=== PATIENT | male | born 1960 | race Caucasian/White ===

== ENCOUNTER 2018-08-06 17:44 | Observation (INO) ==
[2018-08-06] MEDS ORDERED: 0.9 % Sodium Chloride 1,000 ML IVC ONE (17:47)
[2018-08-06] MEDS ORDERED: Ondansetron 4 MG/2 ML VIAL IVP ONE (17:47)
--- NOTE | 2018-08-06 17:49 | Emergency Department Note ---
Disposition Clinical Impression: Dehydration, Nausea vomiting and diarrhea Chemotherapy adverse reaction Qualifiers: Encounter type: initial encounter Qualified Code(s): T45.1X5A - Adverse effect of antineoplastic and immunosuppressive drugs, initial encounter Disposition: Admitted As Inpatient Condition: Fair [facility]: [facility] [Primary Care Provider[facility] - Forms: ED Satisfaction Letter Nausea/Vomiting/Diarrhea HPI - General Chief complaint: ED Nausea/Vomiting/Diarrhea Stated complaint: Nausea, vomiting, frequent falls onset Monday Time Seen by Provider: 08/06/18 17:47 Source: patient, EMS Mode of arrival: EMS Limitations: no limitations Nursing Notes Reviewed: Yes Vital Signs Reviewed: Yes - History of Present Illness HPI Narrative: Patient reports that he had his normal chemotherapy on Monday for his 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 He has been through radiation and the full. After this episode of chemotherapy he started Monday morning with nausea, vomiting and diarrhea. He states he has had diarrhea about once a day without blood or mucus. States he vomits if he eats or drinks anything. With this he has generalized weakness and malaise. He states he just gets up out of bed to try to Remove he will end up on the ground. He states "it is a slow process". He denies any has any specific injury beyond "little scrapes". He is concerned that he is unable to get up and get around and thereby care for himself thereby prompting a call to 911. He denies any ill exposures, fevers or chills. Denies chest pain, cough or abnormal shortness of breath. He states his shortness of breath that is "normal for me" and he has chronic dyspnea on exertion. He denies any blood or mucus in emesis or stool. He denies any abdominal pain or cramping. His urination is decreased. Denies recent change of medications beyond his chemotherapy. An IV was established by EMS and he has been transported in for evaluation. The patient was able to stand to transfer from the EMS cot to our examining bed. Pt Subjective Complaint: nausea, vomiting, diarrhea, other (Presyncopal, weakness) Onset (ago): day(s) (3) Description of emesis: watery Description of Diarrhea: water Number of episodes: 4 Associated Abdominal Pain: No Severity: none Consistency: intermittent Improves with: nothing Worsens with: eating Context: other (Chemotherapy) Associated symptoms: Reports: loss of appetite, malaise, nausea/vomiting, shortness of breath (Chronic), syncope (Near), weakness. Denies: myalgias, chest pain, cough, diaphoresis, fever/chills, headaches, rash, dysuria - Related Data Home Medications Medication Instructions Recorded Confirmed Albuterol Sulfate [Albuterol 1 puff IH Q6HR PRN 10/10/17 08/03/18 Inhaler] Atorvastatin Calcium [Lipitor] 20 mg PO DAILY 10/10/17 08/03/18 Cetirizine HCl [Zyrtec] 10 mg PO DAILY 10/10/17 08/03/18 Cholecalciferol (D-3) [Vitamin D] 3,000 unit PO DAILY 10/10/17 08/03/18 FLUoxetine HCl [PROzac] 20 mg PO DAILY 10/10/17 08/03/18 Gabapentin [Neurontin] 100 mg PO TID 10/10/17 08/03/18 Glimepiride [Amaryl] 8 mg PO DAILY 10/10/17 08/03/18 Ibuprofen 600 mg PO TID PRN 10/10/17 08/03/18 Saxagliptin HCl [Onglyza] 5 mg PO DAILY 10/10/17 08/03/18 Sildenafil Citrate [Viagra] 100 mg PO AD PRN 10/10/17 08/03/18 metFORMIN [Glucophage] 500 mg PO BIDWM 06/01/18 08/03/18 Previous Rx's Medication Instructions Recorded Dexamethasone [Decadron] 4 mg PO BID #36 tab 06/15/18 Ondansetron HCl [Zofran] 4 mg PO Q8HR PRN #90 tab 06/21/18 Prochlorperazine Maleate 10 mg PO Q8HR PRN #90 tablet 06/21/18 [Compazine] Guaifenesin [Mucinex] 600 mg PO Q12H PRN #30 tab.er.12h 07/27/18 Allergies Allergy/AdvReac Type Severity Reaction Status Date / Time No Known Allergies Allergy Verified 08/03/18 08:29 All systems ED: reviewed and negative except as stated. Past Medical History - Past Medical History Attestation: Yes The following information was validated with the patient. Source: patient, old records reviewed, nursing notes reviewed Medical history: Reports: cancer (Squamous cell, metastatic), diabetes, hypertension Surgical history: Reports: other (Pilonidal cyst) Psychiatric history: Reports: no psych history - Social History Smoking Status: Former smoker Smokeless Tobacco Status: No Alcohol use: Reports: none Drug use: Reports: none Physical Exam - General Limitations: no limitations General appearance: alert, in no apparent distress - Head Head exam: atraumatic, normocephalic, normal inspection - Eye Eye exam: Present: normal appearance, PERRL, EOMI. Absent: scleral icterus, conjunctival injection - ENT ENT exam: normal exam, normal oropharynx, mucous membranes moist, other (Mucous membranes do not appear dry at this time.) - Neck Neck exam: Present: normal inspection, full ROM, trachea midline - Chest Chest inspection: Present: normal inspection, symmetric chest wall rise. Absent: tenderness - Respiratory Respiratory exam: Present: normal lung sounds bilaterally. Absent: respiratory distress, wheezes, prolonged expiratory phase - Cardiovascular Cardiovascular exam: Present: regular rate, normal rhythm, normal heart sounds. Absent: tachycardia - Abdominal Exam Abdominal exam: Present: soft, Non-Tender, normal bowel sounds. Absent: tenderness, distention, guarding, rebound, rigidity - Extremities Exam Extremities exam: Present: normal inspection, full ROM, normal capillary refill, other (Tiny scuff in the right prepatellar region.). Absent: tenderness, pedal edema - Expanded Lower Extremity Exam Neurovascular/Tendon exam: Present: normal capillary refill. Absent: motor deficit, sensory deficit, tendon deficit Gait: observed and normal (Limited from the transport gurney to the ER bed.) - Back Exam Back exam: Present: normal inspection, full ROM. Absent: tenderness, CVA tenderness (R), CVA tenderness (L) - Neurological Exam Neurological exam: Present: alert, oriented X3 - Psychiatric Psychiatric exam: Present: normal affect, normal mood - Skin Skin exam: Present: warm, dry, intact, normal color. Absent: rash, diaphoresis, pallor Course Course Narrative: 185: Care has been discussed with the patient and Dr. Dover of oncology. He recommends continuation of IV fluids without imaging or antibiotics. He feels that he can follow-up this week after adequate hydration and it will be up to his clinical status whether he needs to be observant for the night or go home tonight with close follow-up. I have discussed this with the patient and he does not feel comfortable going home as he keeps falling down when he goes to stand and walk. His current blood pressure is 122/67 and he is alert and he is resting comfortably. I also did further investigate his chemotherapy and he relates he has been on a pattern of treatment of a heavy dose followed by two light doses. He is now on his seventh dose which is a "heavy dose". He has not had difficulty with previous dosing. A page has been placed to Dr. Cruz to discuss observation overnight. 1908: Care has been discussed with Dr. Cruz. He is agreeable with observation of this patient for continued hydration. Verbal orders have been obtained for the patient's observation. Vital Signs Temperature 97.4 F L 08/06/18 17:49 Pulse Rate 108 08/06/18 17:49 Respiratory Rate 18 08/06/18 17:49 Blood Pressure 122/81 08/06/18 17:49 O2 Sat by Pulse Oximetry 99 08/06/18 17:49 Temperature 97.4 F L 08/06/18 17:49 Pulse Rate 108 08/06/18 17:49 Respiratory Rate 18 08/06/18 17:49 Blood Pressure 122/81 08/06/18 17:49 O2 Sat by Pulse Oximetry 99 08/06/18 17:49 Oxygen Delivery Oxygen Delivery Room Air Nausea/Vomiting/Diarrhea - Differential Diagnosis Likely: food poisoning, gastroenteritis, dehydration - Medical Records Medical records reviewed: Yes I reviewed the patient's medical records. - Lab Data Lab results reviewed: Yes I reviewed the patient's lab results. Result diagrams: 08/06/18 18:05 08/06/18 18:05 Lab Results 08/06/18 08/06/18 08/06/18 Range/Units 18:05 18:05 18:05 WBC 4.5 (4.3-11.1) K/mcL RBC 3.47 L (4.19-5.50) M/mcL Hgb 10.4 L (12.9-16.9) g/dL Hct 29.7 L (37.5-50.1) % MCV 85.6 (83.0-100.0) fL MCH 30.0 (28.0-33.3) pg MCHC 35.0 (31.6-35.5) g/dL RDW 16.7 H (11.5-14.5) % Plt Count 270 (140-400) K/mcL MPV 10.1 (9.4-12.4) fL Immature Gran % 0.4 (0-4) % Seg Neutrophils % 72.4 % Lymphocytes % 20.1 % Monocytes % 5.6 % Eosinophils % 1.3 % Basophils % 0.2 % Neutrophils # 3.2 (1.6-8.9) K/mcL Lymphocytes # 0.9 (0.6-4.6) K/mcL Monocytes # 0.3 (0.0-1.3) K/mcL Eosinophils # 0.1 (0.0-0.6) K/mcL Basophils # 0.0 (0.0-0.2) K/mcL Sodium 134 L (136-145) mEq/L Potassium 3.8 (3.5-5.1) mEq/L Chloride 97 L (98-107) mEq/L Carbon Dioxide 25 (23-29) mEq/L BUN 20 (6-20) mg/dL Creatinine 1.07 (0.70-1.30) mg/dL Est GFR ( Amer) > 60 (> 60) Est GFR (Non-Af Amer) > 60 (> 60) BUN/Creatinine Ratio 19 (6-26) Glucose 232 H (70-105) mg/dL Calculated Osmolality 288 (280-300) Lactic Acid 3.2 H (0.5-2.2) mmol/L Calcium 9.2 (8.6-10.3) mg/dL Total Bilirubin 1.5 H (0.3-1.0) mg/dL Direct Bilirubin 0.2 (0.0-0.2) mg/dL Indirect Bilirubin 1.3 H (0.0-1.2) mg/dL AST 12 L (13-39) Units/L ALT 13 (7-52) Units/L Alkaline Phosphatase 65 (34-104) Units/L Serum Total Protein 7.8 (6.4-8.9) g/dL Albumin 4.3 (3.5-5.7) g/dL Globulin 3.5 (2.4-3.5) g/dL Albumin/Globulin Ratio 1.2 (1.1-2.2)
[2018-08-06] MEDS ORDERED: 0.9 % Sodium Chloride 1,000 ML IVC SCH (18:00)
[2018-08-06 18:16] LABS: Basophils % 0.2 %; Eosinophils # 0.1 K/mcL (0.0-0.6); Eosinophils % 1.3 %; Hematocrit 29.7 % (37.5-50.1); Hemoglobin 10.4 g/dL (12.9-16.9); Immature Granulocytes % 0.4 % (0-4); Lymphocytes # 0.9 K/mcL (0.6-4.6); Lymphocytes % 20.1 %; Mean Corpuscular Volume 85.6 fL (83.0-100.0); Mean Platelet Volume 10.1 fL (9.4-12.4); Monocytes # 0.3 K/mcL (0.0-1.3); Monocytes % 5.6 %; Neutrophils # 3.2 K/mcL (1.6-8.9); Platelet Count 270 K/mcL (140-400); Red Blood Count 3.47 M/mcL (4.19-5.50); Red Cell Distribution Width 16.7 % (11.5-14.5); Segmented Neutrophils % 72.4 %
[2018-08-06 18:31] LABS: Alanine Aminotransferase 13 Units/L (7-52); Albumin 4.3 g/dL (3.5-5.7); Albumin/Globulin Ratio 1.2 (1.1-2.2); Alkaline Phosphatase 65 Units/L (34-104); Aspartate Amino Transferase 12 Units/L (13-39); BUN/Creatinine Ratio 19 (6-26); Bilirubin,Direct 0.2 mg/dL (0.0-0.2); Bilirubin,Indirect 1.3 mg/dL (0.0-1.2); Bilirubin,Total 1.5 mg/dL (0.3-1.0); Blood Urea Nitrogen 20 mg/dL (6-20); Calcium 9.2 mg/dL (8.6-10.3); Carbon Dioxide 25 mEq/L (23-29); Chloride 97 mEq/L (98-107); Globulin 3.5 g/dL (2.4-3.5); Glucose 232 mg/dL (70-105); Osmolality,Calculated 288 (280-300); Potassium 3.8 mEq/L (3.5-5.1); Sodium 134 mEq/L (136-145); Total Protein 7.8 g/dL (6.4-8.9); eGFR For Non-African Americans > 60 (> 60)
[2018-08-06] MEDS: 0.9 % Sodium Chloride 1,000 ML IVC SCH (20:35)
[2018-08-06] MEDS ORDERED: MOM Conc 10 ML UD.LIQ PO PRN (20:36)
[2018-08-06] MEDS ORDERED: Ondansetron 4 MG/2 ML VIAL IVP PRN (20:36)
[2018-08-06] MEDS ORDERED: *HR* Dextrose 50 % in Water (Vial) 50 ML VIAL IVP PRN (20:36)
[2018-08-06] MEDS ORDERED: Mag Hydrox/Al Hydrox/Simeth 30 ML UDC PO PRN (20:36)
[2018-08-06] MEDS ORDERED: Dextrose Gel 15 GM/37.5 ML TUBE PO PRN ×2 (20:36)
[2018-08-06] MEDS ORDERED: Naloxone 0.4 MG/ML INJ IVP PRN (20:36)
[2018-08-06] MEDS ORDERED: D5% in Water 1,000 ML IVC PRN (20:36)
[2018-08-07] MEDS: 0.9 % Sodium Chloride 1,000 ML IVC SCH ×2 (04:32→14:25)
[2018-08-07] MEDS: Insulin LISPRO 300 UNITS/3 ML VIAL SQ SCH ×2 (08:39→12:02)
[2018-08-07 15:44] VITALS: BP 108/70
--- NOTE | 2018-08-07 15:45 | Internal Med History&Physical ---
Date of Encounter: 08/07/18 Time of Encounter: 14:45 Assessment and Plan (1) Multiple falls Current visit: Yes Status: Acute Likely due to orthostatic hypotension. I told him he should discuss with his PCP increasing the dose of Florinef and/or Midodrine and using compression stockings daily. (2) Metastatic squamous cell carcinoma involving lung with unknown primary site Current visit: Yes Status: Acute As per oncologist. Qualifiers: Laterality: unspecified laterality Qualified Code(s): C78.00 - Secondary malignant neoplasm of unspecified lung; C80.1 - Malignant (primary) neoplasm, unspecified (3) Anemia Current visit: Yes Status: Acute Probably due in part to chemotherapy. Qualifiers: Anemia type: unspecified type Qualified Code(s): D64.9 - Anemia, unspecified Internal Medicine - H&P: HPI Chief complaint: Falling, near syncope Admitted From: Emergency Dept Plans for Post Hospital Care: Home History of present illness: Mr. Yuen is a 58 year old male who came to emergency room stating he had 3 episodes of falling at home the day of admission. He reports frequent falls due to orthostatic hypotension despite safety measures and use of Florinef, midodrine, and compression stockings. He reports there was near syncope associated with the last fall chest prior to coming to the emergency room. He was evaluated in emergency room and given IV fluids and was admitted to [facility] floor for overnight observation. He states he has had orthostatic hypotension since completing chemotherapy January 2018. He follows at the [facility], [place] for squamous cell lung cancer diagnosed 2017. He restarted chemotherapy a few weeks ago. He has been diagnosed with anemia. He denies other internal malignancies or blood disorders. Past Med Surg Social Fam HX - Past Medical History Medical history: arthritis, cancer, diabetes, hyperlipidemia Additional medical history: squamous cell carnioma of lung/liver Psychiatric history: no psych history - Past Surgical History Surgical History: other Additional surgical history: cyst removed - Social History Smoking Status: Former smoker Smokeless Tobacco Status: No Alcohol use: none Drug use: none - Family History Mother Hx Family Cardiac Disorders: Yes Father Hx Family Respiratory Disorders: Yes (COPD) Internal Medicine - H&P: Meds Albuterol Sulfate [Albuterol Inhaler] 1 puff IH Q6HR PRN 10/10/17 [History] Atorvastatin Calcium [Lipitor] 20 mg PO DAILY 10/10/17 [History] Cetirizine HCl [Zyrtec] 10 mg PO DAILY 10/10/17 [History] Cholecalciferol (D-3) [Vitamin D] 3,000 unit PO DAILY 10/10/17 [History] FLUoxetine HCl [PROzac] 20 mg PO DAILY 10/10/17 [History] Gabapentin [Neurontin] 100 mg PO TID 10/10/17 [History] Glimepiride [Amaryl] 8 mg PO DAILY 10/10/17 [History] Ibuprofen 600 mg PO TID PRN 10/10/17 [History] Saxagliptin HCl [Onglyza] 5 mg PO DAILY 10/10/17 [History] Sildenafil Citrate [Viagra] 100 mg PO AD PRN 10/10/17 [History] metFORMIN [Glucophage] 500 mg PO BIDWM 06/01/18 [History] Dexamethasone [Decadron] 4 mg PO BID #36 tab 06/15/18 [Rx] Ondansetron HCl [Zofran] 4 mg PO Q8HR PRN #90 tab 06/21/18 [Rx] Prochlorperazine Maleate [Compazine] 10 mg PO Q8HR PRN #90 tablet 06/21/18 [Rx] Guaifenesin [Mucinex] 600 mg PO Q12H PRN #30 tab.er.12h 07/27/18 [Rx] Allergy/AdvReac Type Severity Reaction Status Date / Time No Known Allergies Allergy Verified 08/03/18 08:29 All Systems PM: A 10-system review of systems was performed and is negative for pertinent findings except as documented above in the HPI. Review of systems: Gen.: He states his weight has been stable for several months Cardiovascular: He denies hypertension [place] heart failure angina DVT or pulmonary embolus Respiratory: He smoked from age [age] up to 2 packs per day. He reports PFTs were done 2018 but does not know the result. He does not use home oxygen and has not been tested for sleep apnea GI: He denies disorders of his gallbladder or exocrine pancreas. He had a liver metastasis documented on PET scan 05/16/2018. A follow-up CT scan 07/31/2018 showed decreased size of the lesion after initiating additional chemotherapy. : He denies hematuria dysuria or kidney stones Neurologic: He denies large distribution strokes or seizures. Endocrine: He was diagnosed with DM 2 approximately 2010. He has hyperlipidemia but denies known thyroid disease. Hematology/oncology: As per history of present illness Psychiatric: He denies anxiety depression or other mental health issues [place] skeletal: He has diabetic peripheral neuropathy and DJD. He denies gout or other bone joint or muscle disorders. - Constitutional Vitals: Temp Pulse Resp BP Pulse Ox 98.2 F 99 14 107/68 99 08/07/18 11:36 08/07/18 11:36 08/07/18 11:36 08/07/18 11:36 08/07/18 11:36 Exam: Gen.: He is a well-developed well-nourished male resting comfortably in bed who appears in no acute distress HEENT: Head is atraumatic and normocephalic. Eyes: EOMI. There is no scleral icterus. Mouth: Mucosa is moist. Neck: Supple and nontender. There is no thyromegaly or adenopathy noted. Heart: Regular without murmurs gallops or ectopics Lungs: No wheezes or crackles are heard. Abdomen: Soft and nontender. No masses or guarding are noted. Extremities: There is no cyanosis edema or clubbing noted. Dorsalis pedis and posterior tibial pulses are 1-2 over 2 bilaterally. Neurologic: Mental status: He is talkative and a good historian. Cranial ner ves: Smile is symmetric. Forehead wrinkles bilaterally. Tongue protrudes midline. EOMI. Motor: There is no pronator drift. Cerebellar: Finger to nose is intact bilaterally. Skin: Warm and dry Internal Med - H&P Results - Labs CBC & Chem 7: 08/06/18 18:05 08/06/18 18:05 Labs: Short CBC 08/06/18 Range/Units 18:05 WBC 4.5 (4.3-11.1) K/mcL Hgb 10.4 L (12.9-16.9) g/dL Hct 29.7 L (37.5-50.1) % Plt Count 270 (140-400) K/mcL Neutrophils # 3.2 (1.6-8.9) K/mcL BMP 08/06/18 18:05 Sodium 134 L Potassium 3.8 Chloride 97 L Carbon Dioxide 25 BUN 20 Creatinine 1.07 Glucose 232 H Calcium 9.2 Liver Function 08/06/18 Range/Units 18:05 Total Bilirubin 1.5 H (0.3-1.0) mg/dL Direct Bilirubin 0.2 (0.0-0.2) mg/dL AST 12 L (13-39) Units/L ALT 13 (7-52) Units/L Alkaline Phosphatase 65 (34-104) Units/L Albumin 4.3 (3.5-5.7) g/dL
--- NOTE | 2018-08-07 15:56 | Discharge Summary ---
Orders not resulted at time of discharge: Pending orders 08/06/18 18:05 Culture,Blood [BC] Stat Date of Encounter: 08/07/18 Time of Encounter: 14:45 - Discharge Diagnosis (1) Multiple falls Priority: Primary Status: Acute (2) Metastatic squamous cell carcinoma involving lung with unknown primary site Priority: Secondary Status: Acute Qualifiers: Laterality: unspecified laterality Qualified Code(s): C78.00 - Secondary malignant neoplasm of unspecified lung; C80.1 - Malignant (primary) neoplasm, unspecified (3) Anemia Priority: Secondary Status: Acute Qualifiers: Anemia type: unspecified type Qualified Code(s): D64.9 - Anemia, unspecified Hospital course: Mr. Yuen is a 58 year old male who came to emergency room stating he had 3 episodes of falling at home the day of admission. He reports frequent falls due to orthostatic hypotension despite safety measures and use of Florinef, midodrine, and compression stockings. He reports there was near syncope associated with the last fall chest prior to coming to the emergency room. He was evaluated in emergency room and given IV fluids and was admitted to [facility] for overnight observation. Initial orders were written by the emergency room physician. I saw him on August 07 and performed the history and physical. He was given IV fluids. On August 07 was able to ambulate to the bathroom without syncope or near syncopal episodes. He reported he still felt somewhat lightheaded on standing. I recommended he discuss with his PCP increasing his medications for orthostatic hypotension and using compression stockings regularly. I felt he was stable for discharge home. He will follow with his PCP at [place] within 1 week. - Time Spent with Patient Total time spent providing and/or coordinating discharge services: - Discharge Medications Prescriptions: Continued Sildenafil Citrate [Viagra] 100 mg PO AD PRN PRN Reason: Erectile Dysfunction Ibuprofen 600 mg PO TID PRN PRN Reason: Pain Atorvastatin Calcium [Lipitor] 20 mg PO DAILY Saxagliptin HCl [Onglyza] 5 mg PO DAILY Gabapentin [Neurontin] 100 mg PO TID FLUoxetine HCl [Prozac] 20 mg PO DAILY Glimepiride [Amaryl] 8 mg PO DAILY Cholecalciferol (D-3) [Vitamin D] 3,000 unit PO DAILY Albuterol Sulfate [Albuterol Inhaler] 1 puff IH Q6HR PRN PRN Reason: Cough Dexamethasone [Decadron] 4 mg PO BID #36 tab Ondansetron HCl [Zofran] 4 mg PO Q8HR PRN #90 tab PRN Reason: Nausea Prochlorperazine Maleate [Compazine] 10 mg PO Q8HR PRN #90 tablet PRN Reason: Nausea Guaifenesin [Mucinex] 600 mg PO Q12H PRN #30 tab.er.12h PRN Reason: Cough metFORMIN [Glucophage] 500 mg PO BIDWM Discontinued Cetirizine HCl [Zyrtec] 10 mg PO DAILY Home Medications: Albuterol Sulfate [Albuterol Inhaler] 1 puff IH Q6HR PRN 10/10/17 [History] Atorvastatin Calcium [Lipitor] 20 mg PO DAILY 10/10/17 [History] Cholecalciferol (D-3) [Vitamin D] 3,000 unit PO DAILY 10/10/17 [History] FLUoxetine HCl [Prozac] 20 mg PO DAILY 10/10/17 [History] Gabapentin [Neurontin] 100 mg PO TID 10/10/17 [History] Glimepiride [Amaryl] 8 mg PO DAILY 10/10/17 [History] Ibuprofen 600 mg PO TID PRN 10/10/17 [History] Saxagliptin HCl [Onglyza] 5 mg PO DAILY 10/10/17 [History] Sildenafil Citrate [Viagra] 100 mg PO AD PRN 10/10/17 [History] metFORMIN [Glucophage] 500 mg PO BIDWM 06/01/18 [History] Dexamethasone [Decadron] 4 mg PO BID #36 tab 06/15/18 [Rx] Ondansetron HCl [Zofran] 4 mg PO Q8HR PRN #90 tab 06/21/18 [Rx] Prochlorperazine Maleate [Compazine] 10 mg PO Q8HR PRN #90 tablet 06/21/18 [Rx] Guaifenesin [Mucinex] 600 mg PO Q12H PRN #30 tab.er.12h 07/27/18 [Rx] Allergies/Adverse Reactions: Allergy/AdvReac Type Severity Reaction Status Date / Time No Known Allergies Allergy Verified 08/03/18 08:29 Date of admission: 08/06/18 19:44 [facility] care physician: [facility] Consults: 08/06/18 21:36 Consult to Clinical Data Management Director [CONS] Routine Reason for SW Consult: discharge planning - Constitutional Vitals: Temp Pulse Resp BP Pulse Ox 97.4 F L 99 18 108/70 96 08/07/18 15:42 08/07/18 15:42 08/07/18 15:42 08/07/18 15:42 08/07/18 15:42 - Patient Status Disposition: Home, Self-Care Condition: Fair - Discharge Instructions Follow Up With: PATRICK,PCP [Primary Care Provider] - 08/13/18 2:00 pm ([facility] Team) - Diet and Activity Activity: resume usual activities as tolerated Diet: advance to your usual diet
== END 2018-08-07 16:22 | disposition home or self-care (01) ==
LOC: EMEROOPIK 17:44 → INPPIK 17:44
PROVIDERS: ADMIT Internal Medicine; ATTEND Internal Medicine